=== PATIENT | female | born 1985 | race Caucasian/White ===

== ENCOUNTER 2017-12-19 09:47 | Emergency (ER) | END 2017-12-19 13:55 | disposition home or self-care (01) ==

== ENCOUNTER 2018-02-28 08:40 | Emergency (ER) | END 2018-02-28 12:42 | disposition home or self-care (01) ==

== ENCOUNTER 2018-05-13 18:11 | Emergency (ER) | END 2018-05-14 02:36 | disposition home or self-care (01) ==